=== PATIENT | male | born 1980 | race Caucasian/White ===

== ENCOUNTER 2017-01-30 15:00 | Inpatient (IN) ==
[2017-01-30] MEDS ORDERED: Verapamil 5 MG/2 ML VIAL ONE (15:08)
[2017-01-30] MEDS ORDERED: Heparin 1,000 UNITS/500 mL NS 500 ML ONE (15:09)
[2017-01-30] MEDS ORDERED: 0.9 % Sodium Chloride 1,000 ML ONE (15:09)
[2017-01-30] MEDS ORDERED: *HR* Heparin 10,000 UNIT/10 ML VIAL ONE (15:09)
--- NOTE | 2017-01-30 15:09 | Emergency Department Note ---
Disposition Clinical Impression: NSTEMI (non-ST elevated myocardial infarction), Suicidal intent, Overdose Disposition: Admitted As Inpatient Condition: Good General Adult HPI - General Chief complaint: ED Chest Pain Stated complaint: Chest Pain/OD this morning Time Seen by Provider: 01/30/17 15:02 - Related Data Home Medications Medication Instructions Recorded Confirmed Ascorbate Calcium [Vitamin C] 500 mg PO DAILY 01/30/17 01/30/17 Cyclobenzaprine [Flexeril] 10 mg PO HS PRN 01/30/17 01/30/17 Gabapentin [Neurontin] 300 mg PO TID PRN 01/30/17 01/30/17 Ibuprofen [Motrin] 600 - 800 mg PO Q8H PRN 01/30/17 01/30/17 Lisinopril [Zestril] 5 mg PO DAILY 01/30/17 01/30/17 Lurasidone [Latuda] 40 mg PO HS 01/30/17 01/30/17 [place]-3/Dha/Epa/Fish Oil [Fish Oil 1,000 mg PO DAILY 01/30/17 01/30/17 1,000 mg Softgel] OxyCODONE Immed Rel [Roxicodone 5 5 mg PO Q6HR PRN 01/30/17 01/30/17 MG] Ubidecarenone [Coenzyme Q10] 100 mg PO DAILY 01/30/17 01/30/17 Venlafaxine XR (24 HR) [Effexor XR] 75 mg PO DAILY 01/30/17 01/30/17 Vitamin B Complex [B Complex] 1 each PO DAILY 01/30/17 01/30/17 Zolpidem [Ambien] 5 mg PO HS PRN 01/30/17 01/30/17 clonazePAM [Klonopin] 0.5 mg PO DAILY PRN 01/30/17 01/30/17 Allergies Allergy/AdvReac Type Severity Reaction Status Date / Time No Known Allergies Allergy Verified 04/03/16 11:59 Past Medical History - Past Medical History Medical history: Reports: other Psychiatric history: Reports: no psych history - Social History Smoking Status: Current some day smoker Smokeless Tobacco Status: No Alcohol use: Reports: none Drug use: Reports: none Course Vital Signs Temperature 97.8 F 01/30/17 15:02 Pulse Rate 107 01/30/17 15:02 Respiratory Rate 16 01/30/17 15:02 Blood Pressure 113/86 01/30/17 15:02 O2 Sat by Pulse Oximetry 97 01/30/17 15:02 Temperature 97.6 F 01/31/17 07:42 Pulse Rate 82 01/31/17 07:42 Respiratory Rate 16 01/31/17 07:42 Blood Pressure 113/66 01/31/17 07:42 O2 Sat by Pulse Oximetry 98 01/31/17 07:42 Oxygen Delivery Oxygen Delivery Room Air Medical Decision Making - Lab Data Result diagrams: 01/31/17 03:41 01/31/17 03:41 Lab Results 01/30/17 01/30/17 01/30/17 Range/Units 15:34 16:30 16:30 WBC (4.3-11.1) K/mcL RBC (4.19-5.50) M/mcL Hgb (12.9-16.9) g/dL Hct (37.5-50.1) % MCV (83.0-100.0) fL MCH (28.0-33.3) pg MCHC (31.6-35.5) g/dL RDW (11.5-14.5) % Plt Count (140-400) K/mcL MPV (9.4-12.4) fL Immature Gran % (0-4) % Seg Neutrophils % % Lymphocytes % % Monocytes % % Eosinophils % % Basophils % % Neutrophils # (1.6-8.9) K/mcL Lymphocytes # (0.6-4.6) K/mcL Monocytes # (0.0-1.3) K/mcL Eosinophils # (0.0-0.6) K/mcL Basophils # (0.0-0.2) K/mcL PT (9.4-12.1) Seconds INR APTT (26.0-36.0) Seconds Sodium (136-145) mEq/L Potassium (3.5-4.5) mEq/L Chloride (98-109) mEq/L Carbon Dioxide (19-29) mEq/L BUN (8-26) mg/dL Creatinine (0.72-1.25) mg/dL Est GFR ( Amer) (> 60) Est GFR (Non-Af Amer) (> 60) BUN/Creatinine Ratio (6-26) Glucose (70-99) mg/dL Calculated Osmolality (280-300) Calcium (8.6-10.8) mg/dL Magnesium (1.6-2.6) mg/dL Total Bilirubin (0.2-1.2) mg/dL AST (5-34) Units/L ALT (0-55) Units/L Alkaline Phosphatase (38-126) Units/L Troponin I (0-0.03) ng/mL Serum Total Protein (6.0-8.3) g/dL Albumin (3.5-5.0) g/dL Globulin (2.4-3.5) g/dL Albumin/Globulin Ratio (1.1-2.2) Triglycerides (< 150) mg/dL Cholesterol (< 200) mg/dL LDL Cholesterol, Calc (0-99) mg/dL VLDL Cholesterol, Calc (< 31) mg/dL HDL Cholesterol (40-59) mg/dL Cholesterol/HDL Ratio (0-4.9) Urine Color Yellow (Yellow) Urine Clarity Clear (Clear) Urine pH 6.0 (5.0-8.0) pH Units Ur Specific [place] 1.012 (1.010-1.025) Urine Protein Trace (Neg-Trace) mg/dL Urine Glucose (UA) Normal (Normal) mg/dL Urine Ketones 40 H (Negative) mg/dL Urine Blood Negative (Negative) Urine Nitrite Negative (Negative) Urine Bilirubin Negative (Negative) Urine Urobilinogen Normal (Normal) mg/dL Ur Leukocyte Esterase Negative (Negative) Urine Microscopic RBC 0-3 (0-3) per hpf Urine Microscopic WBC 0-3 (0-3) per hpf Ur Squamous Epith Cells None Seen (None-Few) per lpf Urine Bacteria Few (None-Few) per hpf Salicylates < 5.0 L (15-30) mg/dL Urine Opiates Screen Negative (Swxprw=161) ng/mL Acetaminophen < 1.0 L (10-30) mcg/mL Ur Barbiturates Screen Negative (Zillfk=930) ng/mL Ur Phencyclidine Scrn Negative (Cutoff=25) ng/mL Ur Amphetamines Screen Positive H (Zorqfb=5837) ng/mL U Benzodiazepines Scrn Negative (Irmlxw=649) ng/mL Urine Cocaine Screen Negative (Cutoff= 300) ng/mL U Marijuana (THC) Screen Positive H (Cutoff = 50) ng/mL Ethyl Alcohol < 10 (0-10) mg/dL 01/30/17 01/30/17 01/30/17 Range/Units 20:36 20:36 20:36 WBC 6.5 (4.3-11.1) K/mcL RBC 5.05 (4.19-5.50) M/mcL Hgb 15.1 (12.9-16.9) g/dL Hct 44.4 (37.5-50.1) % MCV 87.9 (83.0-100.0) fL MCH 29.9 (28.0-33.3) pg MCHC 34.0 (31.6-35.5) g/dL RDW 13.2 (11.5-14.5) % Plt Count 156 (140-400) K/mcL MPV 10.1 (9.4-12.4) fL Immature Gran % 0.3 (0-4) % Seg Neutrophils % 72.6 % Lymphocytes % 17.9 % Monocytes % 7.7 % Eosinophils % 1.2 % Basophils % 0.3 % Neutrophils # 4.7 (1.6-8.9) K/mcL Lymphocytes # 1.2 (0.6-4.6) K/mcL Monocytes # 0.5 (0.0-1.3) K/mcL Eosinophils # 0.1 (0.0-0.6) K/mcL Basophils # 0.0 (0.0-0.2) K/mcL PT 14.2 H (9.4-12.1) Seconds INR 1.3 APTT 27.6 (26.0-36.0) Seconds Sodium 133 L (136-145) mEq/L Potassium 3.8 (3.5-4.5) mEq/L Chloride 95 L (98-109) mEq/L Carbon Dioxide 28 (19-29) mEq/L BUN 14 (8-26) mg/dL Creatinine 1.10 (0.72-1.25) mg/dL Est GFR ( Amer) > 60 (> 60) Est GFR (Non-Af Amer) > 60 (> 60) BUN/Creatinine Ratio 13 (6-26) Glucose 72 (70-99) mg/dL Calculated Osmolality 275 L (280-300) Calcium 9.7 (8.6-10.8) mg/dL Magnesium 1.8 (1.6-2.6) mg/dL Total Bilirubin 1.4 H (0.2-1.2) mg/dL AST 24 (5-34) Units/L ALT 20 (0-55) Units/L Alkaline Phosphatase 67 (38-126) Units/L Troponin I (0-0.03) ng/mL Serum Total Protein 6.9 (6.0-8.3) g/dL Albumin 3.8 (3.5-5.0) g/dL Globulin 3.1 (2.4-3.5) g/dL Albumin/Globulin Ratio 1.2 (1.1-2.2) Triglycerides 87 (< 150) mg/dL Cholesterol 241 H (< 200) mg/dL LDL Cholesterol, Calc 185 H (0-99) mg/dL VLDL Cholesterol, Calc 17 (< 31) mg/dL HDL Cholesterol 39 L (40-59) mg/dL Cholesterol/HDL Ratio 6.2 H (0-4.9) Urine Color (Yellow) Urine Clarity (Clear) Urine pH (5.0-8.0) pH Units Ur Specific [place] (1.010-1.025) Urine Protein (Neg-Trace) mg/dL Urine Glucose (UA) (Normal) mg/dL Urine Ketones (Negative) mg/dL Urine Blood (Negative) Urine Nitrite (Negative) Urine Bilirubin (Negative) Urine Urobilinogen (Normal) mg/dL Ur Leukocyte Esterase (Negative) Urine Microscopic RBC (0-3) per hpf Urine Microscopic WBC (0-3) per hpf Ur Squamous Epith Cells (None-Few) per lpf Urine Bacteria (None-Few) per hpf Salicylates (15-30) mg/dL Urine Opiates Screen (Vbidzg=087) ng/mL Acetaminophen (10-30) mcg/mL Ur Barbiturates Screen (Dazzmn=357) ng/mL Ur Phencyclidine Scrn (Cutoff=25) ng/mL Ur Amphetamines Screen (Fvimjr=3714) ng/mL U Benzodiazepines Scrn (Xwlszv=860) ng/mL Urine Cocaine Screen (Cutoff= 300) ng/mL U Marijuana (THC) Screen (Cutoff = 50) ng/mL Ethyl Alcohol (0-10) mg/dL 01/30/17 Range/Units 20:36 WBC (4.3-11.1) K/mcL RBC (4.19-5.50) M/mcL Hgb (12.9-16.9) g/dL Hct (37.5-50.1) % MCV (83.0-100.0) fL MCH (28.0-33.3) pg MCHC (31.6-35.5) g/dL RDW (11.5-14.5) % Plt Count (140-400) K/mcL MPV (9.4-12.4) fL Immature Gran % (0-4) % Seg Neutrophils % % Lymphocytes % % Monocytes % % Eosinophils % % Basophils % % Neutrophils # (1.6-8.9) K/mcL Lymphocytes # (0.6-4.6) K/mcL Monocytes # (0.0-1.3) K/mcL Eosinophils # (0.0-0.6) K/mcL Basophils # (0.0-0.2) K/mcL PT (9.4-12.1) Seconds INR APTT (26.0-36.0) Seconds Sodium (136-145) mEq/L Potassium (3.5-4.5) mEq/L Chloride (98-109) mEq/L Carbon Dioxide (19-29) mEq/L BUN (8-26) mg/dL Creatinine (0.72-1.25) mg/dL Est GFR ( Amer) (> 60) Est GFR (Non-Af Amer) (> 60) BUN/Creatinine Ratio (6-26) Glucose (70-99) mg/dL Calculated Osmolality (280-300) Calcium (8.6-10.8) mg/dL Magnesium (1.6-2.6) mg/dL Total Bilirubin (0.2-1.2) mg/dL AST (5-34) Units/L ALT (0-55) Units/L Alkaline Phosphatase (38-126) Units/L Troponin I 0.10 H* (0-0.03) ng/mL Serum Total Protein (6.0-8.3) g/dL Albumin (3.5-5.0) g/dL Globulin (2.4-3.5) g/dL Albumin/Globulin Ratio (1.1-2.2) Triglycerides (< 150) mg/dL Cholesterol (< 200) mg/dL LDL Cholesterol, Calc (0-99) mg/dL VLDL Cholesterol, Calc (< 31) mg/dL HDL Cholesterol (40-59) mg/dL Cholesterol/HDL Ratio (0-4.9) Urine Color (Yellow) Urine Clarity (Clear) Urine pH (5.0-8.0) pH Units Ur Specific [place] (1.010-1.025) Urine Protein (Neg-Trace) mg/dL Urine Glucose (UA) (Normal) mg/dL Urine Ketones (Negative) mg/dL Urine Blood (Negative) Urine Nitrite (Negative) Urine Bilirubin (Negative) Urine Urobilinogen (Normal) mg/dL Ur Leukocyte Esterase (Negative) Urine Microscopic RBC (0-3) per hpf Urine Microscopic WBC (0-3) per hpf Ur Squamous Epith Cells (None-Few) per lpf Urine Bacteria (None-Few) per hpf Salicylates (15-30) mg/dL Urine Opiates Screen (Kinlsj=478) ng/mL Acetaminophen (10-30) mcg/mL Ur Barbiturates Screen (Zgqurp=848) ng/mL Ur Phencyclidine Scrn (Cutoff=25) ng/mL Ur Amphetamines Screen (Hlglsp=0935) ng/mL U Benzodiazepines Scrn (Pdqapv=998) ng/mL Urine Cocaine Screen (Cutoff= 300) ng/mL U Marijuana (THC) Screen (Cutoff = 50) ng/mL Ethyl Alcohol (0-10) mg/dL Attestation Statement - Attestation Attestation: I examined this patient and my medical decision-making was reviewed with the Resident Physician. I agree with the documented findings, disposition and treatment plan as described except to the extent set forth below. [id number] time provided I was made aware of this patient's presentation as a transfer from the [facility] for possible ST elevation AK. I did request the sending facility to fax the ECG which was reviewed by the family program specialist Dr. Gardner. On arrival the patient denies chest pain. He does not appear in any acute distress. EKG reviewed by me and again showed to the family program specialist. STEMI alert not pursued. Patient does admit to a possible suicide attempt yesterday after injecting illicit substances 17:23: Case discussed with the admitting hospitalist Dr. Roldan who accepts admission. I also discussed this case with the on-call family program specialist Dr. Almaraz. It was mutually agreed not to aggressively anticoagulate with heparin or Lovenox at this time. Evaluate the patient in consultation
--- NOTE | 2017-01-30 15:10 | Emergency Department Note ---
Disposition Clinical Impression: NSTEMI (non-ST elevated myocardial infarction), Suicidal intent Overdose Qualifiers: Encounter type: initial encounter Injury intent: intentional self-harm Qualified Code(s): T50.902A - Poisoning by unspecified drugs, medicaments and biological substances, intentional self-harm, initial encounter Disposition: Admitted As Inpatient Condition: Good Time of Disposition: 18:09 General Adult HPI - General Chief complaint: ED Chest Pain Stated complaint: Chest Pain/OD this morning Time Seen by Provider: 01/30/17 15:02 Nursing Notes Reviewed: Yes Vital Signs Reviewed: Yes - History of Present Illness HPI Narrative: Patient being sent by the [facility] for a possible STEMI. They state that he was found in a ditch earlier today. He states this morning he woke up. He had attempted SI by overdose of meth and heroin. He denies any shortness of breath or chest pain. He denies any medical complaints at this time. - Related Data Home Medications Medication Instructions Recorded Confirmed Ascorbate Calcium [Vitamin C] 500 mg PO DAILY 01/30/17 01/30/17 Cyclobenzaprine [Flexeril] 10 mg PO HS PRN 01/30/17 01/30/17 Gabapentin [Neurontin] 300 mg PO TID PRN 01/30/17 01/30/17 Ibuprofen [Motrin] 600 - 800 mg PO Q8H PRN 01/30/17 01/30/17 Lisinopril [Zestril] 5 mg PO DAILY 01/30/17 01/30/17 Lurasidone [Latuda] 40 mg PO HS 01/30/17 01/30/17 [place]-3/Dha/Epa/Fish Oil [Fish Oil 1,000 mg PO DAILY 01/30/17 01/30/17 1,000 mg Softgel] OxyCODONE Immed Rel [Roxicodone 5 5 mg PO Q6HR PRN 01/30/17 01/30/17 MG] Ubidecarenone [Coenzyme Q10] 100 mg PO DAILY 01/30/17 01/30/17 Venlafaxine XR (24 HR) [Effexor XR] 75 mg PO DAILY 01/30/17 01/30/17 Vitamin B Complex [B Complex] 1 each PO DAILY 01/30/17 01/30/17 Zolpidem [Ambien] 5 mg PO HS PRN 01/30/17 01/30/17 clonazePAM [Klonopin] 0.5 mg PO DAILY PRN 01/30/17 01/30/17 Allergies Allergy/AdvReac Type Severity Reaction Status Date / Time No Known Allergies Allergy Verified 04/03/16 11:59 All systems ED: reviewed and negative except as stated. Constitutional: Denies: fever, chills ENT ED: Denies: congestion Cardiovascular: Denies: chest pain, syncope Respiratory: Denies: cough, dyspnea Gastrointestinal: Denies: abdominal pain, nausea, vomiting, diarrhea, hematemesis, melena, hematochezia Genitourinary: Denies: urgency, dysuria, frequency Musculoskeletal: Denies: back pain, neck pain Integumentary: Denies: rash, abrasion Neurological: Denies: headache, weakness Psychiatric: Reports: suicidal thoughts Past Medical History - Past Medical History Attestation: Yes The following information was validated with the patient. Source: patient Medical history: Reports: other Psychiatric history: Reports: no psych history - Social History Smoking Status: Current some day smoker Smokeless Tobacco Status: No Alcohol use: Reports: none Drug use: Reports: none Physical Exam - General Limitations: no limitations General appearance: alert, in distress (Mild respiratory distress) - Head Head exam: atraumatic, normocephalic, normal inspection - Eye Eye exam: Present: normal appearance, PERRL, EOMI - ENT ENT exam: normal exam, normal oropharynx, mucous membranes moist - Neck Neck exam: Present: normal inspection, full ROM, trachea midline - Chest Chest inspection: Present: normal inspection, symmetric chest wall rise - Respiratory Respiratory exam: Present: normal lung sounds bilaterally - Cardiovascular Cardiovascular exam: Present: regular rate, normal rhythm, normal heart sounds - Abdominal Exam Abdominal exam: Present: soft, Non-Tender. Absent: tenderness, distention, guarding, rebound, rigidity, normal bowel sounds, organomegaly - Back Exam Back exam: Present: normal inspection, full ROM. Absent: tenderness - Neurological Exam Neurological exam: Present: alert, oriented X3 - Psychiatric Psychiatric exam: Present: normal affect, normal mood - Skin Skin exam: Present: warm, dry, intact, normal color Course Course Narrative: Male patient presenting to emergency department being sent from the [facility]. He is being sent for a STEMI. On arrival an EKG was taken over to the Consulting Systems Engineer. Where the STEMI was deactivated. Patient is sitting in bed. He does not appear to be in any distress. He states that he is an IV drug user. He states this morning he woke up in a ditch. States that he had injected heroin and methamphetamine. Asked if this was a suicide attempt he said "probably." He states that when he is using he does not want to live. He states that right now at this exact moment he is not suicidal or homicidal. He expresses the desire to stop using. He denies any shortness of breath or chest pain. He states that he has had a recent bicep surgery on his right. The incision site appears to be healing appropriately. He does have track arreguin to his left antecubital fossa. Patient is agreeable to workup and admission to the hospital. The [facility] does have lab work in her chart. Does have a troponin of 0.15. We will admit Patient for an and STEMI as well as overdose and SI. Vital Signs Temperature 97.8 F 01/30/17 15:02 Pulse Rate 107 01/30/17 15:02 Respiratory Rate 16 01/30/17 15:02 Blood Pressure 113/86 01/30/17 15:02 O2 Sat by Pulse Oximetry 97 01/30/17 15:02 Temperature 97.8 F 01/30/17 15:02 Pulse Rate 101 01/30/17 17:36 Respiratory Rate 18 01/30/17 17:47 Blood Pressure 115/77 01/30/17 17:47 O2 Sat by Pulse Oximetry 97 01/30/17 17:36 Oxygen Delivery Oxygen Delivery Room Air Medical Decision Making - Medical Records Medical records reviewed: Yes I reviewed the patient's medical records. - Lab Data Lab results reviewed: Yes I reviewed the patient's lab results. Lab Results 01/30/17 01/30/17 01/30/17 Range/Units 15:34 16:30 16:30 Urine Color Yellow (Yellow) Urine Clarity Clear (Clear) Urine pH 6.0 (5.0-8.0) pH Units Ur Specific [place] 1.012 (1.010-1.025) Urine Protein Trace (Neg-Trace) mg/dL Urine Glucose (UA) Normal (Normal) mg/dL Urine Ketones 40 H (Negative) mg/dL Urine Blood Negative (Negative) Urine Nitrite Negative (Negative) Urine Bilirubin Negative (Negative) Urine Urobilinogen Normal (Normal) mg/dL Ur Leukocyte Esterase Negative (Negative) Urine Microscopic RBC 0-3 (0-3) per hpf Urine Microscopic WBC 0-3 (0-3) per hpf Ur Squamous Epith Cells None Seen (None-Few) per lpf Urine Bacteria Few (None-Few) per hpf Salicylates < 5.0 L (15-30) mg/dL Urine Opiates Screen Negative (Ibqzdl=804) ng/mL Acetaminophen < 1.0 L (10-30) mcg/mL Ur Barbiturates Screen Negative (Zywpwf=077) ng/mL Ur Phencyclidine Scrn Negative (Cutoff=25) ng/mL Ur Amphetamines Screen Positive H (Rpnfmd=3228) ng/mL U Benzodiazepines Scrn Negative (Uqbgpy=260) ng/mL Urine Cocaine Screen Negative (Cutoff= 300) ng/mL U Marijuana (THC) Screen Positive H (Cutoff = 50) ng/mL Ethyl Alcohol < 10 (0-10) mg/dL - Radiology Data Radiology results reviewed: Yes I reviewed the patient's radiology results. Chest X-Ray 01/30/17 15:09 IMPRESSION: No acute process. D/ / Louie Fitzgerald MD / Louie Fitzgerald MD Interpreting Provider: Louie Fitzgerald MD - EKG Data EKG #1 EKG attestation: Yes I reviewed and interpreted this EKG. EKG results narrative: Sinus tachycardia at a rate of 101. WA interval is 162. Respiration is 95. QT is 321. QTC is 379. Patient has less than [address] elevations in leads V2 and V4. No old EKG to compare to. This EKG has been shown to the stock chaser who reports no STEMI.
[2017-01-30] MEDS ORDERED: Aspirin 81 MG TAB.CHEW PO ONE (15:11)
[2017-01-30] MEDS ORDERED: Ondansetron 4 MG/2 ML VIAL IVP ONE (15:23)
[2017-01-30 15:59] LABS: Acetaminophen < 1.0 mcg/mL (10-30); Ethanol < 10 mg/dL (0-10); Salicylate < 5.0 mg/dL (15-30)
[2017-01-30] MEDS ORDERED: *HR* LORazepam 2 MG/ML VIAL IVP ONE (16:14)
[2017-01-30 16:37] LABS: Bilirubin,Urine Negative (Negative); Blood,Urine Negative (Negative); Clarity,Urine Clear (Clear); Color,Urine Yellow (Yellow); Glucose,Urine (UA) Normal (Normal); Ketones,Urine 40 mg/dL (Negative); Leukocyte Esterase,Urine Negative (Negative); Nitrite,Urine Negative (Negative); Protein,Urine Trace mg/dL (Neg-Trace); Specific Gravity,Urine 1.012 (1.010-1.025); Urobilinogen,Urine Normal (Normal)
[2017-01-30 16:42] LABS: Amphetamine Screen,Urine Positive ng/mL (Cutoff=1000); Barbiturate Screen,Urine Negative ng/mL (Cutoff=200); Benzodiazepines Screen,Urine Negative ng/mL (Cutoff=200); Cannabinoid Screen,Urine Positive ng/mL (Cutoff = 50); Cocaine Screen,Urine Negative ng/mL (Cutoff= 300); Opiate Screen,Urine Negative ng/mL (Cutoff=300); Phencyclidine Screen,Urine Negative ng/mL (Cutoff=25)
[2017-01-30 16:51] LABS: Bacteria,Urine Few per hpf (None-Few); RBC,Urine 0-3 per hpf (0-3); Squamous Epithelial Cell,Urine None Seen per lpf (None-Few); WBC,Urine 0-3 per hpf (0-3)
[2017-01-30] MEDS ORDERED: Naloxone 0.4 MG/ML INJ IVP PRN ×2 (20:18→20:38)
[2017-01-30] MEDS ORDERED: Ibuprofen 800 MG TABLET PO PRN (20:29)
[2017-01-30 20:44] LABS: Basophils % 0.3 %; Eosinophils # 0.1 K/mcL (0.0-0.6); Eosinophils % 1.2 %; Hematocrit 44.4 % (37.5-50.1); Hemoglobin 15.1 g/dL (12.9-16.9); Immature Granulocytes % 0.3 % (0-4); Lymphocytes # 1.2 K/mcL (0.6-4.6); Lymphocytes % 17.9 %; Mean Corpuscular Hemoglobin 29.9 pg (28.0-33.3); Mean Corpuscular Volume 87.9 fL (83.0-100.0); Mean Platelet Volume 10.1 fL (9.4-12.4); Monocytes # 0.5 K/mcL (0.0-1.3); Monocytes % 7.7 %; Neutrophils # 4.7 K/mcL (1.6-8.9); Platelet Count 156 K/mcL (140-400); Red Blood Count 5.05 M/mcL (4.19-5.50); Red Cell Distribution Width 13.2 % (11.5-14.5); Segmented Neutrophils % 72.6 %
[2017-01-30 20:49] LABS: INR 1.3; Prothrombin Time 14.2 Seconds (9.4-12.1)
[2017-01-30 20:52] LABS: Activated Partial Thrombo Time 27.6 Seconds (26.0-36.0)
--- NOTE | 2017-01-30 20:52 | Internal Med History&Physical ---
<Kolton Lane J - Last Filed: 01/30/17 20:45> Date of Encounter: 01/30/17 Time of Encounter: 20:45 Assessment and Plan (1) Suicidal intent Current visit: Yes Status: Acute Patient presented to [facility] today with overdose via heroin/methamphetamines, confirm suicide attempt. Patient remains with suicidal and homicidal ideation. Implement suicide precautions at this time 1:1 ratio Resume anxiolytics and antipsychotics home doses. (Latuda, clonazepam, venlafaxine) Psych consult for evaluation director of environmental services are not consulted for evaluation, placement, substance abuse (2) Overdose Current visit: Yes Status: Acute Being admitted for overdose, patient admits to suicidal/homicidal ideation./ Circumstances led him to attempt suicide twice in the last 48 hours. Found this morning unresponsive in a ditch after attempting to commit suicide with herion/methamphetamines. Patient admits having a plan to overdose. Suicidal precautions implemented 1:1 sitter She was found unresponsive we will complete a stat head CT to rule out a delayed bleed in case of the need to start antiplatelet therapy Qualifiers: Encounter type: initial encounter Injury intent: intentional self-harm Qualified Code(s): T50.902A - Poisoning by unspecified drugs, medicaments and biological substances, intentional self-harm, initial encounter (3) NSTEMI (non-ST elevated myocardial infarction) Current visit: Yes Status: Suspected Patient has suspicion for an STEMI, troponins elevated at 0.14. T elevation in leads V2, V3, V4. However there is also consideration early repolarization. The patient is being admitted to [facility] for drug overdose of heroin/methamphetamine. Methamphetamine is likely of elevations in troponins. However, at this time, continue to work him up to rule out an NSTEMI Stat EKG Stat troponins, serial troponins. Based upon result of troponins anticipate potential stress test Stat mag stat CMP stat PHOS Hold antiplatelet therapy at this time until results of CAT scan of head. Continuous telemetry Continuous SPO2 monitoring O2 when necessary titrate to maintain SPO2 greater than 92% Nothing by mouth at this time CBC, CMP in the a.m. Resume Lisinopril (4) DVT prophylaxis Current visit: Yes Status: Acute Risk for DVT due to hospital stay. We will place patient on Lovenox 40 mg subcutaneous daily. However, consider stopping if patient placed on antiplatelet therapy. Internal Medicine - H&P: HPI Chief complaint: found unresponsive, drug overdose, SI, HI, elevated cardiac enzymes Admitted From: Home Plans for Post Hospital Care: Home History of present illness: Mr. Morales is a 36 year old male with a past medical history of hyperlipidemia, hypertension, CAD, polysubstance abuse, anxiety, low back pain. Was being admitted to [facility] today from the [facility] after being found unresponsive secondary to drug overdose of heroin/ methamphetamines. The patient admits this was a suicide attempt and continues to admit suicidal/homicidal ideation. He admits to recently losing at home and having to live out of a vehicle, situation has caused him to attempt suicide twice within the last 48 hours. He admits to a recent admission to [facility] due to heroin overdose, immediately upon discharge the patient attempted suicide again this time with a heroin/methamphetamine combination. Workup at the [facility] found elevated troponin with result of 0.14, CK 362. Otherwise all lab work unremarkable. He appears EKG to have had a STEMI in the V2-V4, EKG repeated at [facility] and reviewed via cardiology and found that he did not have a STEMI but consider early repolarization. Patient is currently hemodynamically stable. Denies any chest pain, shortness of breath, nausea,. Admits to anxiety and apprehension about current situation. He is being admitted to [facility] to rule out CT, suicidal or homicidal ideation and overdose. Past Med Surg Social Fam HX - Past Medical History Medical history: hepatitis, other Psychiatric history: anxiety, depression, panic disorder, PTSD, prior suicide attempt - Past Surgical History Surgical History: other - Social History Smoking Status: Current every day smoker Smokeless Tobacco Status: No Alcohol use: none Drug use: IV Drug Use Internal Medicine - H&P: Meds Ascorbate Calcium [Vitamin C] 500 mg PO DAILY 01/30/17 [History] Cyclobenzaprine [Flexeril] 10 mg PO HS PRN 01/30/17 [History] Gabapentin [Neurontin] 300 mg PO TID PRN 01/30/17 [History] Ibuprofen [Motrin] 600 - 800 mg PO Q8H PRN 01/30/17 [History] Lisinopril [Zestril] 5 mg PO DAILY 01/30/17 [History] Lurasidone [Latuda] 40 mg PO HS 01/30/17 [History] [place]-3/Dha/Epa/Fish Oil [Fish Oil 1,000 mg Softgel] 1,000 mg PO DAILY 01/30/17 [History] OxyCODONE Immed Rel [Roxicodone 5 MG] 5 mg PO Q6HR PRN 01/30/17 [History] Ubidecarenone [Coenzyme Q10] 100 mg PO DAILY 01/30/17 [History] Venlafaxine XR (24 HR) [Effexor XR] 75 mg PO DAILY 01/30/17 [History] Vitamin B Complex [B Complex] 1 each PO DAILY 01/30/17 [History] Zolpidem [Ambien] 5 mg PO HS PRN 01/30/17 [History] clonazePAM [Klonopin] 0.5 mg PO DAILY PRN 01/30/17 [History] 3 Allergy/AdvReac Type Severity Reaction Status Date / Time No Known Allergies Allergy Verified 04/03/16 11:59 All Systems PM: A 10-system review of systems was performed and is negative for pertinent findings except as documented above in the HPI. - Constitutional Constitutional: no chills, no fever(s), no night sweats - EENT Eyes: no change in vision, no discharge, no pain, no photophobia Ears: no ear discharge, no ear pain, no tinnitus Nose, mouth and throat: no dysphagia, no nasal discharge, no neck pain, no sore throat - Cardiovascular Cardiovascular ROS IM: no chest pain, no diaphoresis, no dyspnea, no lightheadedness, no palpitations, no syncope - Respiratory Respiratory: no cough, no dyspnea, no wheezing, no excessive phlegm production - Gastrointestinal Gastrointestinal: no abdominal pain, no diarrhea, no hematemesis, no hematochezia, no melena, no nausea, no vomiting - Musculoskeletal Musculoskeletal ROS IM: no numbness, no tingling - Integumentary Integumentary IM: no rash, no unusual bruising - Neurological Neurological ROS: no confusion, no convulsions, no focal weakness, no numbness, no tingling, no tremor(s) - Psychiatric Psychiatric: as per HPI, anxiety, homicidal ideation, irritability, panic attacks, suicidal ideation, no auditory hallucinations, no behavioral changes, no confusion, no difficulty concentrating - Hematologic/Lymphatic Hematologic/Lymphatic: no easy bruising - Constitutional Vitals: Temp Pulse Resp BP Pulse Ox 97.9 F 94 15 111/64 97 01/30/17 17:59 01/30/17 17:59 01/30/17 17:59 01/30/17 17:59 01/30/17 17:59 - Head Head exam: Present: atraumatic, normocephalic - Eye Eye exam: Present: PERRL, conjuntiva pink, sclera anicteric Pupils: Present: PERRL - Neck Neck exam general surgery: Present: supple, trachea midline. Absent: lymphadenopathy - Respiratory Respiratory exam: Present: CTAB. Absent: accessory muscle use, rales, rhonchi, wheezes - Cardiovascular Cardiovascular exam: Present: RRR, +S1, +S2. Absent: diastolic murmur, gallop, rubs, systolic murmur - GI/Abdominal GI/Abdominal exam: Present: normal bowel sounds, soft, no peritoneal signs. Absent: distended, tenderness - Extremities Exam Extremities exam: Present: warm, radial pulses palpable and symmetrical. Absent : calf tenderness, cyanotic, pedal edema - Neurological Exam Neurological exam: Present: CN II-XII intact, oriented X3, no focal deficits. Absent: pronater drift, facial droop, speech deficit - Psychiatric Psychiatric exam: Present: flat affect (It appears little flat but the patient admits to anxiety.), homicidal ideation, suicidal ideation - Skin Skin exam: Present: dry, intact Internal Med - H&P Results - EKG Data Prior EKG available for review: yes Interpretation IM: suggestive of ischemia (However upon review by cardiology at appears to be early repolarization) <Arley Gotti - Last Filed: 01/30/17 23:54> Date of Encounter: 01/30/17 Internal Medicine - H&P: HPI History of present illness: Mr. Morales is a 36 year old male All Systems PM: A 10-system review of systems was performed and is negative for pertinent findings except as documented above in the HPI. - Constitutional Vitals: Temp Pulse Resp BP Pulse Ox 97.9 F 94 16 105/64 96 01/30/17 17:59 01/30/17 22:27 01/30/17 22:27 01/30/17 22:27 01/30/17 22:27 Internal Med - H&P Results - Labs CBC & Chem 7: 01/30/17 20:36 01/30/17 20:36 Labs: Short CBC 01/30/17 Range/Units 20:36 WBC 6.5 (4.3-11.1) K/mcL Hgb 15.1 (12.9-16.9) g/dL Hct 44.4 (37.5-50.1) % Plt Count 156 (140-400) K/mcL Neutrophils # 4.7 (1.6-8.9) K/mcL BMP 01/30/17 20:36 Sodium 133 L Potassium 3.8 Chloride 95 L Carbon Dioxide 28 BUN 14 Creatinine 1.10 Glucose 72 Calcium 9.7 Cardiac Enzymes 01/30/17 Range/Units 20:36 Troponin I 0.10 H* (0-0.03) ng/mL Liver Function 01/30/17 Range/Units 20:36 Total Bilirubin 1.4 H (0.2-1.2) mg/dL AST 24 (5-34) Units/L ALT 20 (0-55) Units/L Alkaline Phosphatase 67 (38-126) Units/L Albumin 3.8 (3.5-5.0) g/dL - Impressions ITS Impressions Head CT 01/30/17 20:33 IMPRESSION: No acute intracranial abnormality. D/ / Louie Fitzgerald MD / Louie Fitzgerald MD Interpreting Provider: Louie Fitzgerald MD - Attending Attestation I independently obtained history and examined this patient and my medical decision-making was reviewed with the nurse practitioner, Matt Lane. I agree with the documented findings, disposition and treatment plan as described. My findings are summarized below: Patient reports no chest pain or shortness of breath. On exam he is in no acute distress. Heart exam reveals regular S1-S2 no murmurs rubs or gallops lungs are clear abdomen is soft. EKG reviewed by myself shows sinus tachycardia 10 1 bpm LVH and J point elevations in V2 to V4 no ischemic changes Plan: Non-ST elevation CT induced by use of methamphetamine: Aspirin, beta laurie, no need for heparin. Trend troponin. Consult cardiology. Obtain echocardiogram in the morning. Suicidal ideation: Suicidal precautions and consult psychiatry when medically cleared.
[2017-01-30 20:58] LABS: Alanine Aminotransferase 20 Units/L (0-55); Albumin 3.8 g/dL (3.5-5.0); Albumin/Globulin Ratio 1.2 (1.1-2.2); Alkaline Phosphatase 67 Units/L (38-126); Aspartate Amino Transferase 24 Units/L (5-34); BUN/Creatinine Ratio 13 (6-26); Bilirubin,Total 1.4 mg/dL (0.2-1.2); Blood Urea Nitrogen 14 mg/dL (8-26); Calcium 9.7 mg/dL (8.6-10.8); Carbon Dioxide 28 mEq/L (19-29); Chloride 95 mEq/L (98-109); Globulin 3.1 g/dL (2.4-3.5); Glucose 72 mg/dL (70-99); Magnesium 1.8 mg/dL (1.6-2.6); Osmolality,Calculated 275 (280-300); Potassium 3.8 mEq/L (3.5-4.5); Sodium 133 mEq/L (136-145); Total Protein 6.9 g/dL (6.0-8.3); eGFR For African Americans > 60 (> 60); eGFR For Non-African Americans > 60 (> 60)
[2017-01-30 21:20] LABS: Chol/HDL Ratio 6.2 (0-4.9); Cholesterol 241 mg/dL (< 200); HDL Cholesterol 39 mg/dL (40-59); LDL Cholesterol,Calculated 185 mg/dL (0-99); Triglycerides 87 mg/dL (< 150)
[2017-01-30] MEDS: Nicotine 14 MG PATCH.TD24 TD SCH (22:15)
[2017-01-30] MEDS: clonazePAM 0.5 MG TABLET PO PRN (22:17)
[2017-01-31] MEDS: clonazePAM 0.5 MG TABLET PO PRN ×3 (04:10→17:57)
[2017-01-31] MEDS: *HR* OxyCODONE Immed Rel 5 MG TABLET PO PRN ×3 (04:10→17:57)
[2017-01-31 04:38] LABS: Basophils % 0.4 %; Eosinophils # 0.1 K/mcL (0.0-0.6); Eosinophils % 1.5 %; Hematocrit 44.4 % (37.5-50.1); Immature Granulocytes % 0.4 % (0-4); Lymphocytes # 1.1 K/mcL (0.6-4.6); Lymphocytes % 16.7 %; Mean Corpuscular HGB Conc 33.8 g/dL (31.6-35.5); Mean Corpuscular Hemoglobin 29.5 pg (28.0-33.3); Mean Corpuscular Volume 87.4 fL (83.0-100.0); Mean Platelet Volume 10.1 fL (9.4-12.4); Monocytes # 0.6 K/mcL (0.0-1.3); Neutrophils # 4.9 K/mcL (1.6-8.9); Platelet Count 162 K/mcL (140-400); Red Blood Count 5.08 M/mcL (4.19-5.50); Red Cell Distribution Width 13.2 % (11.5-14.5)
[2017-01-31 04:56] LABS: Alanine Aminotransferase 21 Units/L (0-55); Albumin 3.8 g/dL (3.5-5.0); Albumin/Globulin Ratio 1.2 (1.1-2.2); Alkaline Phosphatase 64 Units/L (38-126); Aspartate Amino Transferase 22 Units/L (5-34); BUN/Creatinine Ratio 15 (6-26); Bilirubin,Total 1.4 mg/dL (0.2-1.2); Blood Urea Nitrogen 15 mg/dL (8-26); Calcium 9.8 mg/dL (8.6-10.8); Carbon Dioxide 24 mEq/L (19-29); Chloride 98 mEq/L (98-109); Globulin 3.2 g/dL (2.4-3.5); Glucose 69 mg/dL (70-99); Osmolality,Calculated 279 (280-300); Potassium 3.5 mEq/L (3.5-4.5); Sodium 135 mEq/L (136-145); eGFR For African Americans > 60 (> 60); eGFR For Non-African Americans > 60 (> 60)
[2017-01-31] MEDS: *HR* Enoxaparin 40 MG/0.4 ML SYRINGE SQ SCH (06:08)
[2017-01-31] MEDS: Aspirin 81 MG TAB.CHEW PO SCH (08:27)
[2017-01-31] MEDS: Venlafaxine XR (24 HR) 75 MG CAP.ER.24H PO SCH (08:27)
[2017-01-31] MEDS ORDERED: Nicotine 14 MG PATCH.TD24 TD SCH (09:00)
[2017-01-31] MEDS: Nicotine 14 MG PATCH.TD24 TD SCH (10:10)
--- NOTE | 2017-01-31 10:32 | Cardiology Consult Note ---
Date of Encounter: 01/31/17 Time of Encounter: 10:00 Assessment and Plan (1) Overdose Current Visit: Yes Status: Acute Per cardiology: -Patient has admitted to attempted suicide attempt by overdose. -Was found in a ditch after taking illicit medications. -Management per primary service. Qualifiers: Encounter type: initial encounter Injury intent: intentional self-harm Qualified Code(s): T50.902A - Poisoning by unspecified drugs, medicaments and biological substances, intentional self-harm, initial encounter (2) Elevated troponin Current Visit: Yes Status: Acute Per cardiology: -Troponin 0.[address], at [facility] 0.1, 0.07, 0.05. -Troponins flat and adynamic in the setting of overdose. -Denies chest pain. -ECG with sinus rhythm. -Echo pending. -DO not suspect NSTEMI, suspect demand ischemia related to overdose. NO cardiac rehab warranted at this time. -Further recommendations pending echo. (3) Tobacco abuse Current Visit: Yes Status: Acute Per cardiology: -Smokes 1-1.5 ppd of cigarettes for 20 years. -I spent 3 minutes reviewing smoking cessations education with patient. (4) Hyperlipidemia Current Visit: Yes Status: Acute Per cardiology: -Patient reports known history of hyperlipidemia, states he was supposed to follow diet modifications and follow with PCP. -Recommend statin therapy. Patient aware. -Reinforced dietary recommendations. Patient states understanding and states he will follow up with PCP. Qualifiers: Hyperlipidemia type: mixed hyperlipidemia Qualified Code(s): E78.2 - Mixed hyperlipidemia Discussion w patient/family: The assessment and plan as outlined above was discussed with the patient who expressed understanding and agreement. All questions were answered. Thank you for involving us in the care of your patient. Please call with any questions. Discussed and reviewed with . History of Present Illness Consult date: 01/30/17 Requesting physician: Robin Serrano Consult reason: NSTEMI Chief complaint: Overdose History of present illness: Mr. Morales is a 36 year old male with a relevant past medical history of HTN, hyperlipidemia, smoking, and illicit drug use. Patient originally presented to [facility] after being found passed out in a ditch, according to records. Patient states he does not remember much of the last 5 days and everything is "fuzzy." Patient admits to methamphetamine use. According to records, patient complained of chest pain. However, patient denies chest pain and states he does not remember having chest pain. Pateint states prior to the past 5 days, he did not have any chest pain. Patient admits to fatigue and some shortness of breath. Past Med Surg Social Fam HX - Past Medical History Attestation: Yes The following information was validated with the patient. Source: patient, old records reviewed Medical history: hyperlipidemia, hypertension, other Psychiatric history: no psych history - Past Surgical History Surgical History: other - Social History Smoking Status: Current some day smoker Smokeless Tobacco Status: No Alcohol use: none Drug use: none Medications and Allergies Ascorbate Calcium [Vitamin C] 500 mg PO DAILY 01/30/17 [History] Cyclobenzaprine [Flexeril] 10 mg PO HS PRN 01/30/17 [History] Gabapentin [Neurontin] 300 mg PO TID PRN 01/30/17 [History] Ibuprofen [Motrin] 600 - 800 mg PO Q8H PRN 01/30/17 [History] Lisinopril [Zestril] 5 mg PO DAILY 01/30/17 [History] Lurasidone [Latuda] 40 mg PO HS 01/30/17 [History] [place]-3/Dha/Epa/Fish Oil [Fish Oil 1,000 mg Softgel] 1,000 mg PO DAILY 01/30/17 [History] OxyCODONE Immed Rel [Roxicodone 5 MG] 5 mg PO Q6HR PRN 01/30/17 [History] Ubidecarenone [Coenzyme Q10] 100 mg PO DAILY 01/30/17 [History] Venlafaxine XR (24 HR) [Effexor XR] 75 mg PO DAILY 01/30/17 [History] Vitamin B Complex [B Complex] 1 each PO DAILY 01/30/17 [History] Zolpidem [Ambien] 5 mg PO HS PRN 01/30/17 [History] clonazePAM [Klonopin] 0.5 mg PO DAILY PRN 01/30/17 [History] 3 Allergy/AdvReac Type Severity Reaction Status Date / Time No Known Allergies Allergy Verified 04/03/16 11:59 All Systems Review: A 10-system review of systems was performed and is negative for pertinent findings except as documented above in the HPI. - Constitutional Constitutional: fatigue - Cardiovascular Cardiovascular: as per HPI, dyspnea on exertion Physical Examination Vital Signs, Last 4 Hours Temp Pulse Resp BP Pulse Ox 01/31/17 07:42 97.6 F 82 16 113/66 98 General: Conversant, No Apparent Distress HEENT: Atraumatic, Normocephaly, Mucus Membranes Moist Neck: No JVD, Normal carotid pulses Cardiac: Reg Rate and Rhythm, Normal S1 and S2, No Murmur Lungs: Normal Breath Sounds, No Wheeze, Rales, Rhonchi Neuro: Alert and responsive, No focal deficits noted Abdomen: Soft, Non-Tender Skin: No rashes noted on visualized skin Musculoskeletal: No Chest Wall Tenderness Extremities: No Clubbing, No Cyanosis, No Edema, Normal Pulses Results 01/31/17 03:41 01/31/17 03:41 Lab Results Impressions Chest X-Ray 01/30/17 15:09 IMPRESSION: No acute process. D/ / Louie Fitzgerald MD / Louie Fitzgerald MD Interpreting Provider: Louie Fitzgerald MD Head CT 01/30/17 20:33 IMPRESSION: No acute intracranial abnormality. D/ / Louie Fitzgerald MD / Louie Fitzgerald MD Interpreting Provider: Louie Fitzgerald MD Active Medications Aspirin (Aspirin) 81 mg PO DAILY [facility] Stop: 08/02/17 09:01 Last Admin: 01/31/17 08:27 Dose: 81 mg Clonazepam (Klonopin) 0.5 mg PO Q8H PRN PRN Reason: Anxiety Stop: 08/01/17 20:30 Last Admin: 01/31/17 10:15 Dose: 0.5 mg Enoxaparin Sodium (Lovenox) 40 mg SQ 0600 BREANNA PRN Reason: Protocol Stop: 08/02/17 06:01 Last Admin: 01/31/17 06:08 Dose: 40 mg Ibuprofen (Motrin) 800 mg PO Q8H PRN; Protocol PRN Reason: Pain Stop: 08/01/17 20:30 Lisinopril (Zestril) 5 mg PO DAILY BREANNA PRN Reason: Protocol Stop: 08/02/17 09:01 Last Admin: 01/31/17 08:27 Dose: 5 mg Lurasidone HCl (Latuda) 40 mg PO HS [facility] Stop: 08/01/17 21:01 Last Admin: 01/30/17 22:15 Dose: 40 mg Naloxone HCl (Narcan) 0.4 mg IVP Q2MIN PRN PRN Reason: Opioid Reversal Stop: 08/01/17 20:19 Naloxone HCl (Narcan) 0.4 mg IVP Q2MIN PRN PRN Reason: Opioid Reversal Stop: 08/01/17 20:39 Nicotine (Nicoderm) 14 mg TD DAILY BREANNA PRN Reason: Protocol Stop: 08/01/17 22:16 Last Admin: 01/31/17 10:10 Dose: 14 mg Ondansetron HCl (Zofran) 4 mg IVP Q8HR PRN PRN Reason: Nausea And Vomiting Stop: 08/01/17 20:39 Oxycodone HCl (Roxicodone) 5 mg PO Q6HR PRN PRN Reason: Pain Stop: 08/01/17 20:30 Last Admin: 01/31/17 10:09 Dose: 5 mg Pharmacy Profile Note (Patient Taking Own Medication) 1 each PO DAILY [facility] Stop: 08/02/17 09:01 Last Admin: 01/31/17 08:18 Dose: Not Given Venlafaxine HCl (Effexor Xr) 75 mg PO DAILY [facility] Stop: 08/02/17 09:01 Last Admin: 01/31/17 08:27 Dose: 75 mg Laboratory Tests 01/30/17 01/30/17 01/31/17 20:36 20:36 03:41 Hgb 15.0 Creatinine AST ALT Troponin I 0.10 H* Triglycerides 87 Cholesterol 241 H LDL Cholesterol, Calc 185 H HDL Cholesterol 39 L 01/31/17 01/31/17 01/31/17 03:41 03:41 09:08 Hgb Creatinine 0.97 AST 22 ALT 21 Troponin I 0.07 H* 0.05 H* Triglycerides Cholesterol LDL Cholesterol, Calc HDL Cholesterol - Imaging and Cardiology Chest Xray: report reviewed Echo: pending - EKG Interpretation EKG results cardiology: personally reviewed (ECG with sinus rhythm, HR 86.), other (Telemetry reviewed with average HR 86, sinus rhythm.) Consult Discharge Plan - Plan Referrals: NONE,PCP [Primary Care Provider] -
--- NOTE | 2017-01-31 11:59 | Consult Note ---
Date of Encounter: 01/31/17 Time of Encounter: 11:57 Assessment & Recommendation (1) Overdose Current visit: Yes Status: Acute Assessment & Recommendation: Please transfer patient to be [place] substance treatment unit for further safety and stabilization. At this time patient denies any thoughts of self-harm denies suicidal or homicidal ideations and is not a threat to himself or anyone else so 1-1 sitter can be discontinued. Continue medical workup. Qualifiers: Encounter type: initial encounter Injury intent: intentional self-harm Qualified Code(s): T50.902A - Poisoning by unspecified drugs, medicaments and biological substances, intentional self-harm, initial encounter History of Present Illness Patient: new to practice Requesting Physician: Jean Claude Richardson MD Reason for consult: susbtance abuse/depression History of present illness: Mr. Morales is a 36 year old male who was admitted to Hospital after being found in a ditch and being high on methamphetamine's. On evaluation with patient this morning patient was calm and cooperative. And did not appear to be in any acute distress. 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 Patient reports due to all of the stressors he got overwhelmed and he started using drugs again he reports his drug of choice is heroin and he reports that he has had sobriety of 2 years in the past after he went to the [facility] which he would like to go to a gun to get sober. Patient reports that his is supportive and she is a recovering addict as well but she has been sober for a few years now. Patient reports that he is not feeling suicidal denies any suicidal ideations or homicidal ideations patient reports that he is very eager to get sober and to get to the program. Patient [facility] and he knows everyone there and he would like to possibly get started on Suboxone at that is what the doctor feels necessary. CC: Jean Claude Richardson MD Past Med Surg Social Fam HX - Past Medical History Medical history: hyperlipidemia, hypertension, other - Past Psychiatric History Past psychiatric history details: Patient reports being admitted 2 years ago to the [place] [facility] abuse unit for substance use treatment patient denied any past suicide attempts patient denied any past psychiatric medication patient denies any current psychiatric medication patient denied seeing any past psychiatric providers or counseling in the past Family psychiatric history: No Family History of Suicide: None - Past Surgical History Surgical History: other - Social History Smoking Status: Current some day smoker Smokeless Tobacco Status: No Alcohol use: none Drug use: none Medications & Allergies Ascorbate Calcium [Vitamin C] 500 mg PO DAILY 01/30/17 [History] Cyclobenzaprine [Flexeril] 10 mg PO HS PRN 01/30/17 [History] Gabapentin [Neurontin] 300 mg PO TID PRN 01/30/17 [History] Ibuprofen [Motrin] 600 - 800 mg PO Q8H PRN 01/30/17 [History] Lisinopril [Zestril] 5 mg PO DAILY 01/30/17 [History] Lurasidone [Latuda] 40 mg PO HS 01/30/17 [History] [place]-3/Dha/Epa/Fish Oil [Fish Oil 1,000 mg Softgel] 1,000 mg PO DAILY 01/30/17 [History] OxyCODONE Immed Rel [Roxicodone 5 MG] 5 mg PO Q6HR PRN 01/30/17 [History] Ubidecarenone [Coenzyme Q10] 100 mg PO DAILY 01/30/17 [History] Venlafaxine XR (24 HR) [Effexor XR] 75 mg PO DAILY 01/30/17 [History] Vitamin B Complex [B Complex] 1 each PO DAILY 01/30/17 [History] Zolpidem [Ambien] 5 mg PO HS PRN 01/30/17 [History] clonazePAM [Klonopin] 0.5 mg PO DAILY PRN 01/30/17 [History] 3 Allergy/AdvReac Type Severity Reaction Status Date / Time No Known Allergies Allergy Verified 04/03/16 11:59 Review of Systems Psychiatric: Reports: anxiety Mental Status Exam Patient orientation: Yes Person, Yes Time, Yes Place, Yes Circumstance Level of alertness: Alert Patient appearance: Appropriate Behavior: calm Psychomotor activity: Normal Eye contact: Maintains Eye Contact Mood description: Euthymic/stable Affect description: congruent with mood Speech pattern: Normal rate Speech volume: Normal Thought process: Intact Thought content: Yes Intact Attention span: Capable of Focused Attention, Capable of Sustained Attention Memory description: Grossly Intact Results - Vital Signs Vital signs: Temp Pulse Resp BP Pulse Ox 97.6 F 82 16 113/66 98 01/31/17 07:42 01/31/17 07:42 01/31/17 07:42 01/31/17 07:42 01/31/17 07:42 - Labs Labs: Laboratory Last Values WBC 6.8 K/mcL (4.3-11.1) 01/31/17 03:41 RBC 5.08 M/mcL (4.19-5.50) 01/31/17 03:41 Hgb 15.0 g/dL (12.9-16.9) 01/31/17 03:41 Hct 44.4 % (37.5-50.1) 01/31/17 03:41 MCV 87.4 fL (83.0-100.0) 01/31/17 03:41 MCH 29.5 pg (28.0-33.3) 01/31/17 03:41 MCHC 33.8 g/dL (31.6-35.5) 01/31/17 03:41 RDW 13.2 % (11.5-14.5) 01/31/17 03:41 Plt Count 162 K/mcL (140-400) 01/31/17 03:41 MPV 10.1 fL (9.4-12.4) 01/31/17 03:41 Immature Gran % 0.4 % (0-4) 01/31/17 03:41 Seg Neutrophils % 72.0 % 01/31/17 03:41 Lymphocytes % 16.7 % 01/31/17 03:41 Monocytes % 9.0 % 01/31/17 03:41 Eosinophils % 1.5 % 01/31/17 03:41 Basophils % 0.4 % 01/31/17 03:41 Neutrophils # 4.9 K/mcL (1.6-8.9) 01/31/17 03:41 Lymphocytes # 1.1 K/mcL (0.6-4.6) 01/31/17 03:41 Monocytes # 0.6 K/mcL (0.0-1.3) 01/31/17 03:41 Eosinophils # 0.1 K/mcL (0.0-0.6) 01/31/17 03:41 Basophils # 0.0 K/mcL (0.0-0.2) 01/31/17 03:41 PT 14.2 Seconds (9.4-12.1) H 01/30/17 20:36 INR 1.3 01/30/17 20:36 APTT 27.6 Seconds (26.0-36.0) 01/30/17 20:36 Sodium 135 mEq/L (136-145) L 01/31/17 03:41 Potassium 3.5 mEq/L (3.5-4.5) 01/31/17 03:41 Chloride 98 mEq/L (98-109) 01/31/17 03:41 Carbon Dioxide 24 mEq/L (19-29) 01/31/17 03:41 BUN 15 mg/dL (8-26) 01/31/17 03:41 Creatinine 0.97 mg/dL (0.72-1.25) 01/31/17 03:41 Est GFR ( Amer) > 60 (> 60) 01/31/17 03:41 Est GFR (Non-Af Amer) > 60 (> 60) 01/31/17 03:41 BUN/Creatinine Ratio 15 (6-26) 01/31/17 03:41 Glucose 69 mg/dL (70-99) L 01/31/17 03:41 POC Glucose 73 (58-89) 01/31/17 01:18 Calculated Osmolality 279 (280-300) L 01/31/17 03:41 Calcium 9.8 mg/dL (8.6-10.8) 01/31/17 03:41 Magnesium 1.8 mg/dL (1.6-2.6) 01/30/17 20:36 Total Bilirubin 1.4 mg/dL (0.2-1.2) H 01/31/17 03:41 AST 22 Units/L (5-34) 01/31/17 03:41 ALT 21 Units/L (0-55) 01/31/17 03:41 Alkaline Phosphatase 64 Units/L (38-126) 01/31/17 03:41 Troponin I 0.05 ng/mL (0-0.03) H* 01/31/17 09:08 Serum Total Protein 7.0 g/dL (6.0-8.3) 01/31/17 03:41 Albumin 3.8 g/dL (3.5-5.0) 01/31/17 03:41 Globulin 3.2 g/dL (2.4-3.5) 01/31/17 03:41 Albumin/Globulin Ratio 1.2 (1.1-2.2) 01/31/17 03:41 Triglycerides 87 mg/dL (< 150) 01/30/17 20:36 Cholesterol 241 mg/dL (< 200) H 01/30/17 20:36 LDL Cholesterol, Calc 185 mg/dL (0-99) H 01/30/17 20:36 VLDL Cholesterol, Calc 17 mg/dL (< 31) 01/30/17 20:36 HDL Cholesterol 39 mg/dL (40-59) L 01/30/17 20:36 Cholesterol/HDL Ratio 6.2 (0-4.9) H 01/30/17 20:36 Urine Color Yellow (Yellow) 01/30/17 16:30 Urine Clarity Clear (Clear) 01/30/17 16:30 Urine pH 6.0 pH Units (5.0-8.0) 01/30/17 16:30 Ur Specific [place] 1.012 (1.010-1.025) 01/30/17 16:30 Urine Protein Trace mg/dL (Neg-Trace) 01/30/17 16:30 Urine Glucose (UA) Normal mg/dL (Normal) 01/30/17 16:30 Urine Ketones 40 mg/dL (Negative) H 01/30/17 16:30 Urine Blood Negative (Negative) 01/30/17 16:30 Urine Nitrite Negative (Negative) 01/30/17 16:30 Urine Bilirubin Negative (Negative) 01/30/17 16:30 Urine Urobilinogen Normal mg/dL (Normal) 01/30/17 16:30 Ur Leukocyte Esterase Negative (Negative) 01/30/17 16:30 Urine Microscopic RBC 0-3 per hpf (0-3) 01/30/17 16:30 Urine Microscopic WBC 0-3 per hpf (0-3) 01/30/17 16:30 Ur Squamous Epith Cells None Seen per lpf (None-Few) 01/30/17 16:30 Urine Bacteria Few per hpf (None-Few) 01/30/17 16:30 Salicylates < 5.0 mg/dL (15-30) L 01/30/17 15:34 Urine Opiates Screen Negative ng/mL (Pabqeu=610) 01/30/17 16:30 Acetaminophen < 1.0 mcg/mL (10-30) L 01/30/17 15:34 Ur Barbiturates Screen Negative ng/mL (Bikrgr=814) 01/30/17 16:30 Ur Phencyclidine Scrn Negative ng/mL (Cutoff=25) 01/30/17 16:30 Ur Amphetamines Screen Positive ng/mL (Lnnsjx=4794) H 01/30/17 16:30 U Benzodiazepines Scrn Negative ng/mL (Vavefn=895) 01/30/17 16:30 Urine Cocaine Screen Negative ng/mL (Cutoff= 300) 01/30/17 16:30 U Marijuana (THC) Screen Positive ng/mL (Cutoff = 50) H 01/30/17 16:30 Ethyl Alcohol < 10 mg/dL (0-10) 01/30/17 15:34 Consult Discharge Plan - Plan Additional Instructions: [facility] Referrals: NONE,PCP [Primary Care Provider] -
--- NOTE | 2017-01-31 12:50 | Internal Med Progress Note ---
Date of Encounter: 01/31/17 Time of Encounter: 12:20 - Assessment and plan (1) NSTEMI (non-ST elevated myocardial infarction) Current Visit: Yes Status: Acute Assessment and plan: Type II non-STEMI due to demand ischemia related to amphetamine dose. Echocardiogram does not reveal any wall motion abnormalities. Case discussed with cardiology. Patient is on aspirin and statin. Appreciate cardiology input and assistance. No indication for full dose anticoagulation with Lovenox/heparin. Patient is a moderate restrictive due to risk of lethal arrhythmias. He is also at risk of using heroin and amphetamine again. He requires transfer to [place] inpatient psychiatric/substance abuse program. This will likely be on Thursday. (2) Amphetamine abuse Current Visit: Yes Status: Acute Assessment and plan: Patient counseled regarding cessation. He is interested in quitting. Complicated by demand ischemia. Cardiology on board. Echocardiogram does not reveal wall motion abnormalities. (3) Opioid dependence Current Visit: Yes Status: Chronic Assessment and plan: Has a history of withdrawal symptoms in the past. Currently, he is on Percocet for pain control. He will be monitored for any withdrawal symptoms. Clonidine and loperamide when necessary withdrawal symptoms. Transfer to be a substance abuse program when bed available. Qualifiers: Substance use status: uncomplicated Qualified Code(s): F11.20 - Opioid dependence, uncomplicated (4) Tobacco abuse Current Visit: Yes Status: Chronic Assessment and plan: Counseled at length regarding the need for smoking cessation. - Subjective Interval history: Patient states that he feels well today. He states that he has been abusing heroin for a long time. He was sober in 2012. However, he recently started using heroin again. He is not sure of the dose of heroin uses. He states that he uses heroine 3-4 times a day. He states that he rarely uses methamphetamine. He tried to commit suicide by using methamphetamine as it was freely available from his dealer. He is interested in going on Suboxone program at the [place]. He states that he was on Suboxone program in the past and was able to wean off it and was sober for a while. He also reports marijuana use. - Constitutional Vitals: Temp Pulse Resp BP Pulse Ox 97.6 F 82 16 113/66 98 01/31/17 07:42 01/31/17 07:42 01/31/17 07:42 01/31/17 07:42 01/31/17 07:42 Exam: Gen.: Lying in bed. No acute distress. Chest: Clear to auscultation bilaterally. No adventitious sounds present. CVS: First and second heart sounds present. No murmurs, rubs or gallops. Abdomen: Soft, nontender, nondistended. Bowel sounds present. No hepatosplenomegaly. Skin: No decubitus ulcers appreciated. Internal Medicine: Result - Labs CBC & Chem 7: 01/31/17 03:41 01/31/17 03:41 Labs: Short CBC 01/31/17 Range/Units 03:41 WBC 6.8 (4.3-11.1) K/mcL Hgb 15.0 (12.9-16.9) g/dL Hct 44.4 (37.5-50.1) % Plt Count 162 (140-400) K/mcL Neutrophils # 4.9 (1.6-8.9) K/mcL BMP 01/31/17 03:41 Sodium 135 L Potassium 3.5 Chloride 98 Carbon Dioxide 24 BUN 15 Creatinine 0.97 Glucose 69 L Calcium 9.8 Cardiac Enzymes 01/31/17 01/31/17 Range/Units 03:41 09:08 Troponin I 0.07 H* 0.05 H* (0-0.03) ng/mL Liver Function 01/31/17 Range/Units 03:41 Total Bilirubin 1.4 H (0.2-1.2) mg/dL AST 22 (5-34) Units/L ALT 21 (0-55) Units/L Alkaline Phosphatase 64 (38-126) Units/L Albumin 3.8 (3.5-5.0) g/dL - ABG Interpretation ABG results: PT/INR, D-dimer PT 14.2 Seconds (9.4-12.1) H 01/30/17 20:36 Consult Discharge Plan - Plan Additional Instructions: [facility] Referrals: NONE,PCP [Primary Care Provider] -
[2017-01-31] MEDS: cloNIDine HCl 0.1 MG TABLET PO PRN (14:25)
[2017-02-01] MEDS: *HR* OxyCODONE Immed Rel 5 MG TABLET PO PRN ×3 (04:25→19:31)
[2017-02-01] MEDS: *HR* Enoxaparin 40 MG/0.4 ML SYRINGE SQ SCH (05:50)
[2017-02-01] MEDS: Aspirin 81 MG TAB.CHEW PO SCH (08:46)
[2017-02-01] MEDS: Nicotine 14 MG PATCH.TD24 TD SCH (08:47)
[2017-02-01] MEDS: Venlafaxine XR (24 HR) 75 MG CAP.ER.24H PO SCH (08:47)
[2017-02-01] MEDS: clonazePAM 0.5 MG TABLET PO PRN ×2 (11:15→19:31)
--- NOTE | 2017-02-01 12:35 | Internal Med Progress Note ---
Date of Encounter: 02/01/17 Time of Encounter: 09:15 - Assessment and plan (1) NSTEMI (non-ST elevated myocardial infarction) Current Visit: Yes Status: Resolved Assessment and plan: Type II non-STEMI due to demand ischemia related to amphetamine dose. Echocardiogram does not reveal any wall motion abnormalities. Continue aspirin and statin. Cardiology has signed off. No indication for full dose anticoagulation with Lovenox/heparin. Patient is a moderate risk due to risk of lethal arrhythmias. He is also at risk of using heroin and amphetamine again. He requires transfer to [place] inpatient psychiatric/substance abuse program. This will likely be on Thursday. We will order hepatitis profile and HIV testing. (2) Amphetamine abuse Current Visit: Yes Status: Acute Assessment and plan: Patient states that he is ready to quit. He only uses it rarely. (3) Opioid dependence Current Visit: Yes Status: Chronic Assessment and plan: Transfer to [place] tomorrow to substance abuse rehabilitation. Patient is interested on getting set up with Suboxone treatment. Qualifiers: Substance use status: uncomplicated Qualified Code(s): F11.20 - Opioid dependence, uncomplicated (4) Tobacco abuse Current Visit: Yes Status: Chronic Assessment and plan: Patient willing to quit. - Subjective Interval history: Patient states he is doing well. He states that he uses syringes shared with other drug uses. He states that they are not always clean. Denies any nausea, vomiting, chest pain or palpitations. He is requesting to be tested for HIV and hepatitis. - Constitutional Vitals: Temp Pulse Resp BP Pulse Ox 97.7 F 54 14 108/66 98 02/01/17 06:48 02/01/17 06:48 02/01/17 06:48 02/01/17 06:48 02/01/17 06:48 Exam: Gen.: Lying in bed. No acute distress. Chest: Clear to auscultation bilaterally. No adventitious sounds present. CVS: First and second heart sounds present. No murmurs, rubs or gallops. Abdomen: Soft, nontender, nondistended. Bowel sounds present. No hepatosplenomegaly. Internal Medicine: Result - Labs CBC & Chem 7: 01/31/17 03:41 01/31/17 03:41 - ABG Interpretation ABG results: PT/INR, D-dimer PT 14.2 Seconds (9.4-12.1) H 01/30/17 20:36 Consult Discharge Plan - Plan Additional Instructions: [facility] Referrals: NONE,PCP [Primary Care Provider] -
[2017-02-02] MEDS: *HR* Enoxaparin 40 MG/0.4 ML SYRINGE SQ SCH (04:58)
[2017-02-02] MEDS: *HR* OxyCODONE Immed Rel 5 MG TABLET PO PRN ×3 (07:20→20:50)
[2017-02-02] MEDS: Aspirin 81 MG TAB.CHEW PO SCH (08:23)
[2017-02-02] MEDS: Venlafaxine XR (24 HR) 75 MG CAP.ER.24H PO SCH (08:24)
[2017-02-02] MEDS: Nicotine 14 MG PATCH.TD24 TD SCH (08:24)
[2017-02-02] MEDS: clonazePAM 0.5 MG TABLET PO PRN ×2 (08:24→20:50)
[2017-02-02] MEDS: cloNIDine HCl 0.1 MG TABLET PO PRN (08:24)
[2017-02-02] MEDS: Ondansetron 4 MG/2 ML VIAL IVP PRN ×2 (08:32→20:54)
[2017-02-02 12:01] LABS: HIV-1&2 Antibody & p24 Ag Nonreactive (Nonreactive); Hepatitis A Antibody IgM Nonreactive (Nonreactive); Hepatitis B Core IgM Nonreactive (Nonreactive); Hepatitis B Surface Antigen Nonreactive (Nonreactive)
[2017-02-02 12:07] LABS: Hepatitis C Virus Antibody Reactive (Nonreactive)
--- NOTE | 2017-02-02 13:46 | Discharge Summary ---
Date of Encounter: 02/02/17 Time of Encounter: 11:00 - Discharge Diagnosis (1) Amphetamine abuse Priority: Primary Status: Acute (2) Opioid dependence Priority: Secondary Status: Chronic Qualifiers: Substance use status: uncomplicated Qualified Code(s): F11.20 - Opioid dependence, uncomplicated (3) Tobacco abuse Priority: Secondary Status: Chronic - Discharge Medications Prescriptions: Aspirin 81 mg PO DAILY #30 Atorvastatin [Lipitor] 40 mg PO HS #30 tab Home Medications: Ascorbate Calcium [Vitamin C] 500 mg PO DAILY 01/30/17 [History] Cyclobenzaprine [Flexeril] 10 mg PO HS PRN 01/30/17 [History] Gabapentin [Neurontin] 300 mg PO TID PRN 01/30/17 [History] Ibuprofen [Motrin] 600 - 800 mg PO Q8H PRN 01/30/17 [History] Lisinopril [Zestril] 5 mg PO DAILY 01/30/17 [History] Lurasidone [Latuda] 40 mg PO HS 01/30/17 [History] [place]-3/Dha/Epa/Fish Oil [Fish Oil 1,000 mg Softgel] 1,000 mg PO DAILY 01/30/17 [History] OxyCODONE Immed Rel [Roxicodone 5 MG] 5 mg PO Q6HR PRN 01/30/17 [History] Ubidecarenone [Coenzyme Q10] 100 mg PO DAILY 01/30/17 [History] Venlafaxine XR (24 HR) [Effexor XR] 75 mg PO DAILY 01/30/17 [History] Vitamin B Complex [B Complex] 1 each PO DAILY 01/30/17 [History] Zolpidem [Ambien] 5 mg PO HS PRN 01/30/17 [History] clonazePAM [Klonopin] 0.5 mg PO DAILY PRN 01/30/17 [History] Aspirin 81 mg PO DAILY #30 02/02/17 [Rx] Atorvastatin [Lipitor] 40 mg PO HS #30 tab 02/02/17 [Rx] Allergies/Adverse Reactions: 3 Allergy/AdvReac Type Severity Reaction Status Date / Time No Known Allergies Allergy Verified 04/03/16 11:59 Procedures/tests Complete & Pending: Procedures Performed prior 72 hours Category Date Time Status EV echocardiogram Routine Y 01/31/17 08:56 Completed Date of admission: 01/30/17 23:54 Primary care physician: PCP NONE Consults: Psychiatry Cardiology Discharging clinician: Jean Claude Richardson Anticipated date of discharge: 02/02/17 - Patient Status Disposition: Transfer Other Condition: Good Functional capacity at discharge: independent ambulation Overall status at discharge: patient is progressing back to baseline - Discharge Instructions Follow Up With: NONE,PCP [Primary Care Provider] - Additional Instructions: [facility] - Diet and Activity Activity: increase activity as tolerated, resume usual activities as tolerated Diet: advance to your usual diet Hospital course: Mr. Morales is a 36 year old male with a history of heroine use and tobacco abuse who presents to the emergency department due to chest pain after using methamphetamine in an apparent suicide attempt. Patient was found to have elevated troponins. He was admitted to the hospital with a suspected diagnosis of non-STEMI. Cardiology was consulted and echocardiogram was obtained. Echocardiogram did not reveal any wall motion abnormalities. Hence, cardiology has signed off and recommended that the patient does not require any further workup for his elevated troponins. The patient was evaluated by psychiatry and his sitter was discontinued as the patient did not have any further suicidal ideations. It has been recommended that the patient be discharged to [place] inpatient substance abuse and psychiatric facility for further management. The patient is currently pending placement. He will be discharged/transferred to [place] inpatient substance abuse program once a bed is available. - Time Spent with Patient Total time spent providing and/or coordinating discharge services: Greater than 30 minutes (40 min) - Constitutional Vitals: Temp Pulse Resp BP Pulse Ox 97.8 F 77 14 115/59 98 02/02/17 11:45 02/02/17 11:45 02/02/17 11:45 02/02/17 11:45 02/02/17 11:45 Exam: Gen.: Lying in bed. No acute distress. Chest: Clear to auscultation bilaterally. No adventitious sounds present. CVS: First and second heart sounds present. No murmurs, rubs or gallops.
--- NOTE | 2017-02-02 13:47 | Electrocardiograph Report ---
[address] [place], [place] [address] Test Date: 2017-01-30 Pat Name: Pasha Morales Department: 104 Room: 2NE24 Gender: M Telecommunication Engineer: Mery : 1980 Requested By: Billie Christopher Order Number: [id number] Reading MD: Liset Mojica Measurements Intervals [place] Rate: 101 P: 78 [place]: 162 QRS: 50 QRSD: 95 T: 52 QT: 321 QTc: 379 Interpretive Statements SINUS TACHYCARDIA MINIMAL VOLTAGE CRITERIA FOR LVH, CONSIDER NORMAL VARIANT NONSPECIFIC ST ABNORMALITIES ANTERIOR-LATERALLY - CONSIDER ISCHEMIA Electronically Signed On 02-02-2017 13:45:56 EDT by Liset Mojica
--- NOTE | 2017-02-02 18:47 | Electrocardiograph Report ---
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
[2017-02-03] MEDS: *HR* Enoxaparin 40 MG/0.4 ML SYRINGE SQ SCH (06:23)
[2017-02-03] MEDS: Venlafaxine XR (24 HR) 75 MG CAP.ER.24H PO SCH (08:58)
[2017-02-03] MEDS: clonazePAM 0.5 MG TABLET PO PRN ×2 (08:58→17:20)
[2017-02-03] MEDS: *HR* OxyCODONE Immed Rel 5 MG TABLET PO PRN ×3 (08:58→21:41)
[2017-02-03] MEDS: Aspirin 81 MG TAB.CHEW PO SCH (08:59)
[2017-02-03] MEDS: Nicotine 14 MG PATCH.TD24 TD SCH (09:01)
--- NOTE | 2017-02-03 14:22 | Internal Med Progress Note ---
Date of Encounter: 02/03/17 Time of Encounter: 12:00 - Assessment and plan (1) Amphetamine abuse Current Visit: Yes Status: Acute Assessment and plan: Patient states that he is ready to quit. He only uses it rarely. (2) Opioid dependence Current Visit: Yes Status: Chronic Assessment and plan: Transfer to [place] today to substance abuse rehabilitation. Patient is interested on getting set up with Suboxone treatment. Qualifiers: Substance use status: uncomplicated Qualified Code(s): F11.20 - Opioid dependence, uncomplicated (3) Tobacco abuse Current Visit: Yes Status: Chronic Assessment and plan: Patient willing to quit. (4) Hepatitis C Current Visit: Yes Status: Chronic Assessment and plan: Patient informed about the results of hepatitis C being reactive. Patient states that he had hepatitis C in the past and was declared cured after [facility]. He voices understanding and agrees to the same. Qualifiers: Viral hepatitis chronicity: chronic Hepatic coma status: without hepatic coma Qualified Code(s): B18.2 - Chronic viral hepatitis C - Subjective Interval history: Patient currently awaiting placement to [place]. denies any chest pain or palpitations. - Constitutional Vitals: Temp Pulse Resp BP Pulse Ox 97.6 F 81 16 121/63 99 02/03/17 11:59 02/03/17 11:59 02/03/17 11:59 02/03/17 11:59 02/03/17 13:19 Exam: Gen.: Lying in bed. No acute distress. Chest: Clear to auscultation bilaterally. No adventitious sounds present. CVS: First and second heart sounds present. No murmurs, rubs or gallops. Internal Medicine: Result - Labs CBC & Chem 7: 01/31/17 03:41 01/31/17 03:41 - ABG Interpretation ABG results: PT/INR, D-dimer PT 14.2 Seconds (9.4-12.1) H 01/30/17 20:36 - Impressions HIV negative. Hepatitis C is reactive. Consult Discharge Plan - Plan Instructions: Atorvastatin (By mouth) Additional Instructions: [facility] Referrals: [facility],PCP [Non-Partnered Physician] - 02/10/17 1:45 pm Prescriptions: Aspirin 81 mg PO DAILY #30 Atorvastatin [Lipitor] 40 mg PO HS #30 tab
[2017-02-03 16:29] LABS: Hematocrit 42.7 % (37.5-50.1); Mean Corpuscular HGB Conc 35.1 g/dL (31.6-35.5); Mean Corpuscular Volume 88.2 fL (83.0-100.0); Platelet Count 187 K/mcL (140-400); Red Blood Count 4.84 M/mcL (4.19-5.50); Red Cell Distribution Width 13.1 % (11.5-14.5)
[2017-02-03 16:33] LABS: INR 1.1; Prothrombin Time 11.3 Seconds (9.4-12.1)
[2017-02-03 16:43] LABS: Alanine Aminotransferase 21 Units/L (0-55); Albumin 3.6 g/dL (3.5-5.0); Albumin/Globulin Ratio 1.1 (1.1-2.2); Alkaline Phosphatase 57 Units/L (38-126); Aspartate Amino Transferase 17 Units/L (5-34); BUN/Creatinine Ratio 12 (6-26); Bilirubin,Total 0.3 mg/dL (0.2-1.2); Blood Urea Nitrogen 13 mg/dL (8-26); Calcium 9.3 mg/dL (8.6-10.8); Carbon Dioxide 27 mEq/L (19-29); Chloride 105 mEq/L (98-109); Globulin 3.2 g/dL (2.4-3.5); Glucose 84 mg/dL (70-99); Osmolality,Calculated 285 (280-300); Potassium 4.1 mEq/L (3.5-4.5); Sodium 138 mEq/L (136-145); Total Protein 6.8 g/dL (6.0-8.3); eGFR For African Americans > 60 (> 60); eGFR For Non-African Americans > 60 (> 60)
[2017-02-04] MEDS: *HR* Enoxaparin 40 MG/0.4 ML SYRINGE SQ SCH (06:04)
[2017-02-04 07:40] VITALS: BP 115/70
[2017-02-04] MEDS: Aspirin 81 MG TAB.CHEW PO SCH (09:26)
[2017-02-04] MEDS: Nicotine 14 MG PATCH.TD24 TD SCH (09:27)
[2017-02-04] MEDS: Venlafaxine XR (24 HR) 75 MG CAP.ER.24H PO SCH (09:27)
[2017-02-04] MEDS: *HR* OxyCODONE Immed Rel 5 MG TABLET PO PRN (09:31)
[2017-02-04] MEDS: clonazePAM 0.5 MG TABLET PO PRN (09:31)
== END 2017-02-04 12:33 | disposition other institution (70) | DRG 917 ==
LOC: EMEROO 15:00 → 2NENU 17:25 → INTOOBSV 17:25 → 2NENU 17:50
PROVIDERS: ADMIT Internal Medicine; ATTEND Internal Medicine Sleep Medicine